=== PATIENT | female | born 1950 | race Caucasian/White ===

== ENCOUNTER 2021-04-22 02:13 | Emergency (ER) | payer MEDICARE, OTHER ==
[2021-04-22] MEDS ORDERED: Ketorolac 30 MG/ML SDV IM ONE (02:30)
--- NOTE | 2021-04-22 02:30 | EDM.PDOC ---
ED HPI GENERAL MEDICAL PROBLEM - General Chief Complaint: Upper Extremity Injury/Pain Time Seen by Provider: 04/22/21 02:20 Source of Information: Reports: Patient - History of Present Illness INITIAL COMMENTS - FREE TEXT/NARRATIVE: Kingston is a 70 y/o female who presents to the ER with complaints of right wrist pain. She was hunting tonight and as she was crawling down from her deer stand she missed the last step and fell onto her butt. She caught herself with her hands and now her right wrist is painful. Her hand was outstretched to catch her self. She did take a Tramadol about 6 pm shortly after the incident happened and that helped with the pain, but the pain in her right wrist woke her up and she couldn't sleep. Right Wrist Pain Score (Numeric/FACES): 8 - Related Data Allergies Allergy/AdvReac Type Severity Reaction Status Date / Time codeine Allergy Cannot Verified 04/22/21 02:14 Remember Home Meds: Home Meds Adalimumab [Humira] 20 mg SQ DAILY 02/08/15 [History] Hydroxychloroquine Sulfate 200 mg PO BID 02/08/15 [History] Magnesium Oxide 400 mg PO DAILY 02/08/15 [History] Multivitamin with Minerals [Multiple Vitamin] 1 tab PO DAILY 02/08/15 [History] Risedronate [Actonel] 30 mg PO Q28D 02/08/15 [History] Thiamine HCl [B-1] 100 mg PO DAILY 02/08/15 [History] Vitamin B Complex [B Complex] 1 each PO BEDTIME 02/08/15 [History] prednisoLONE Acetate [Pred Forte 1% Ophth Susp] 1 drop EYEBOTH ASDIRECTED PRN 02/08/15 [History] traZODone 25 mg PO BEDTIME 02/08/15 [History] Magnesium Oxide 400 mg PO DAILY #0 tablet 02/10/15 [Rx] Sertraline [Zoloft] 12.5 mg PO DAILY #15 tablet 02/10/15 [Rx] Thiamine [Vitamin B-1] 100 mg PO BEDTIME #0 tablet 02/10/15 [Rx] traZODone 25 mg PO BEDTIME #0 tablet 02/10/15 [Rx] Past Medical History Other [employer] History: bleeding from vagina x2 days Other Musculoskeletal History: soriaticarthritis Social & Family History - Tobacco Use Tobacco Use Status *Q: Never Tobacco User - Recreational Drug Use Recreational Drug Use: No Review of Systems - Review of Systems Review Of Systems: See Below Constitutional: Reports: No Symptoms Eyes: Reports: No Symptoms Ears: Reports: No Symptoms Nose: Reports: No Symptoms Mouth/Throat: Reports: No Symptoms Respiratory: Reports: No Symptoms Cardiovascular: Reports: No Symptoms GI/Abdominal: Reports: No Symptoms Genitourinary: Reports: No Symptoms Musculoskeletal: Reports: Other (right wrist pain) Skin: Reports: No Symptoms Neurological: Reports: No Symptoms Psychiatric: Reports: No Symptoms ED EXAM, GENERAL - Physical Exam Exam: See Below Exam Limited By: No Limitations General Appearance: Alert, WD/WN, No Apparent Distress (elderly female) Ears: Hearing Grossly Normal Head: Atraumatic, Normocephalic Respiratory/Chest: No Respiratory Distress Cardiovascular: Regular Rate, Rhythm GI/Abdominal: Soft (Female) Exam: Deferred Rectal (Female) Exam: Deferred Extremities: Other (Right wrist in tender to palpate on the medial aspect, mild brusing noted over thrumb region, ROM seems nml, just tender, no edema or deformity noted) Neurological: Alert, Oriented, CN II-XII Intact, Normal Cognition, No Motor/Sensory Deficits Psychiatric: Normal Affect, Normal Mood Skin Exam: Warm, Dry, Intact, Normal Color Course - Vital Signs Text/Narrative:: 0220 The patient was seen by the PACKAGER MACHINE. Xray ordered. She was given Toradol 30mg IM for pain. 0240 Xray negative for any acute fx, wrist splint applied. Written discharge instructions were given and the patient left the ER in stable condition. Last Recorded V/S: Last Vital Signs Temp 36.4 C 04/22/21 02:14 Pulse 56 L 04/22/21 02:14 Resp 16 04/22/21 02:14 BP 177/84 H 04/22/21 02:14 Pulse Ox 98 04/22/21 02:14 - Orders/Labs/Meds Orders: Active Orders 24 hr Category Date Time Status Wrist Comp Min 3V Rt [CR] Stat Exams 04/22/21 02:23 Ordered Meds: Medications Discontinued Medications Generic Name Dose Route Start Last Admin Trade Name Freq PRN Reason Stop Dose Admin Ketorolac Tromethamine 30 mg 04/22/21 02:30 Ketorolac 30 Mg/Ml Sdv IM 04/22/21 02:31 ONETIME ONE - Radiology Interpretation Free Text/Narrative:: XR Wrist 3V=no acute fx noted (See final report) Departure - Departure Time of Disposition: 02:40 Disposition: Home, Self-Care 01 Condition: Good Clinical Impression: Wrist sprain Qualifiers: Encounter type: initial encounter Laterality: right Qualified Code(s): S63.501A - Unspecified sprain of right wrist, initial encounter - Discharge Information Instructions: Wrist Sprain, Adult Forms: ED Department Discharge Additional Instructions: -Wear the wrist splint as needed. -Your xray did not show a fracture tonight, however if the radiologist reads it differently we will let you know. -Apply ice as needed for inflammation -Use ibuprofen or acetaminophen as needed for pain/inflammation -May use the Tramadol that you have at home for moderate to severe pain -Follow up with your PCP if the pain persists or you have any other concerns -Return to the ER as needed Sepsis Event Note (ED) - Evaluation Sepsis Screening Result: No Definite Risk - Focused Exam Vital Signs: Vital Signs Temp Pulse Resp BP Pulse Ox 04/22/21 02:14 36.4 C 56 L 16 177/84 H 98 - Problem List & Annotations (1) Wrist sprain SNOMED Code(s): 41177420 Code(s): S63.509A - UNSPECIFIED SPRAIN OF UNSPECIFIED WRIST, INITIAL ENCOUNTER Status: Acute Current Visit: Yes Annotation/Comment:: Xray negative, Wrist splint applied. Qualifiers: Encounter type: initial encounter Laterality: right Qualified Code(s): S63.501A - Unspecified sprain of right wrist, initial encounter - Problem List Review Problem List Initiated/Reviewed/Updated: Yes - My Orders Last 24 Hours: My Active Orders 04/22/21 02:23 Wrist Comp Min 3V Rt [CR] Stat - Assessment/Plan Last 24 Hours: My Active Orders 04/22/21 02:23 Wrist Comp Min 3V Rt [CR] Stat Plan: See above
[2021-04-22 03:17] VITALS: BP 150/87; PULSE 53
--- NOTE | 2021-04-22 15:01 | CR ---
[id number] RAD/RAD Wrist Right 3V Min EXAM: 3 VIEWS RIGHT WRIST. INDICATION: CAUGHT FALL OUT OF DEERSTAND. COMPARISON: None. DISCUSSION: No fracture, dislocation or other acute osseous abnormality. Moderate degenerative changes seen throughout the right hand and wrist. Findings are most pronounced at the radiocarpal joint as well as the first carpometacarpal joint. IMPRESSION: 1. No acute osseous abnormalities. Sumanth Lopez DO 04/22/21 1500 Thank you for allowing us to participate in the care of your patient.
== END 2021-04-22 03:15 | disposition home or self-care (01) ==
LOC: VM.ED 02:13
DX: S63.501A Unspecified sprain of right wrist, initial encounter (principal); Z88.5 Allergy status to narcotic agent; W10.9XXA Fall (on) (from) unspecified stairs and steps, initial encounter
CPT/HCPCS: 73110-RT; 96372; 99283; 99283-25; J1885